=== PATIENT | male | born 1975 | race Hispanic/Latino ===

== ENCOUNTER 2021-04-06 18:56 | Emergency (ER) | payer SELFPAY ==
--- NOTE | ~2021-04-06 | XR_ITS ---
XR chest 2V DATE: 04/06/2021 19:40 INDICATION: Mid chest pain for months. Nonsmoker. TECHNIQUE: 2 views COMPARISON: None FINDINGS: Normal heart size. No hilar or mediastinal enlargement. No pulmonary infiltrate or consolidation, pleural effusion or pulmonary vascular congestion or pneumo thorax. Included skeletal structures are unremarkable. IMPRESSION: No active cardiopulmonary disease Reviewed, dictated and finalized at location A.
--- NOTE | 2021-04-06 11:09 | ECG_ITS ---
Measurements Intervals [place] Rate: 74 P: 69 MI: 138 QRS: 66 QRSD: 92 T: 40 QT: 343 QTc: 381 Interpretive Statements SINUS RHYTHM ST ELEVATION IN ANTEROLAT/INF LEADS- PROBABLY EARLY REPOLARIZATION PEAKED T WAVES- CONSIDER HYPERKALEMIA OR ISCHEMIA ABNORMAL ECG Electronically Signed On 04-11-2021 12:21:20 CDT by Matthew Hallman D.O.
[2021-04-06 19:13] VITALS: BP 135/87; PULSE 89; RESP 16; TEMP 36.8; O2SAT 99
--- NOTE | 2021-04-06 19:18 | ED.CHESTPAIN ---
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 This has occurred before when he lived in [place]. The only medication he remembers taking as well for cholesterol he denies having history of hypertension. He states that he has headache also after being outside Related Data Allergies Allergy/AdvReac Type Severity Reaction Status Date / Time No Known Allergies Allergy Verified 04/06/21 19:48 Review of Systems Review of Systems: Narrative: CONSTITUTIONAL: Denies fever, chills, sweats. EYES: Denies visual changes, redness, discharge. ENT: Denies rhinorrhea, congestion, sore throat, otalgia. CARDIOVASCULAR: Has chest pain, palpitations, edema. RESPIRATORY: Denies dyspnea, wheezing, cough GASTROINTESTINAL: Denies abdominal pain, nausea, vomiting, diarrhea. GENITOURINARY: Denies dysuria, hematuria, abnormal discharge SKIN: Denies rash or itching. NEUROLOGIC: Denies numbness, or focal weakness. Has had PSYCHIATRIC: Denies anxiety or depression. PMFSH Past Medical History Medical History High cholesterol Family History Family History Other No acute medical problems Social History Social History (Updated 04/06/21 @ 20:02 by Jaqui Sierra CNP) Smoking status: Current some day smoker Alcohol intake: current Comments At time of signature, I agree with nursing past medical, surgical, social and family history. There is no relevant family history pertinent to the presenting complaint. Exam Narrative: Exam Narrative: GENERAL: This is a well-nourished, well-developed patient, in mild distress. HEAD: normocephalic, atraumatic. EYES: Sclera clear/white. Vision is grossly intact. EARS: External ears normal, . Hearing grossly intact. NOSE: External nose normal without nasal discharge, nares without redness, no rhinorrhea. THROAT: Mucous membranes moist, NECK: Neck supple, CARDIOVASCULAR: Regular rate and rhythm without murmurs, gallops, or rubs. Nonreproducible chest wall pain RESPIRATORY: Clear to auscultation. Breath sounds equal bilaterally. No wheezes, rales, or rhonchi. GASTROINTESTINAL: Abdomen soft, non-tender, SKIN: warm, intact with no suspicious lesions or rash, good texture and turgor. NEURO: awake, alert, and oriented to person, place and time. There were no obvious focal neurologic abnormalities. Steady gait. Headache-grossly negative cranial nerves EXTREMITIES: Normal range of motion. BACK: Nontender without deformity Course Course Emergency Course: Chest x-ray negative for cardiopulmonary disease no pleural effusion are pulmonary vascular congestion EKG shows heart rate of 74, no QT prolongation, no axis deviation, sinus rhythm, mild inflected T wave, interpretation is nonspecific EKG Given ibuprofen for headache pain, pepcid for epigastric pain, started on multiple vitamin- encouraged hydration. Pt states he hydrates in sun Vital Signs Vital signs: Vital Signs Temperature 98.3 F 04/06/21 19:13 Pulse Rate 89 04/06/21 19:13 Respiratory Rate 16 04/06/21 19:13 Blood Pressure 135/87 04/06/21 19:13 Pulse Oximetry 99 04/06/21 19:13 Temperature 98.3 F 04/06/21 19:13 Pulse Rate 89 04/06/21 19:13 Respiratory Rate 16 04/06/21 19:13 Blood Pressure 135/87 04/06/21 19:13 Pulse Oximetry 99 04/06/21 19:13 MDM - Chest Pain Differential Diagnosis Differential diagnosis: Likely fracture of rib, stable angina, atypical chest pain, costochondritis, chest pain and other Critical Care Time Critical Care Time Critical Care Time: No Discharge Plan Discharge
== END 2021-04-06 20:19 | disposition home or self-care (01) ==
PROVIDERS: Emergency Provider Nurse Practitioner
DX: R10.13 Epigastric pain (principal); R51.9 Headache, unspecified; F17.200 Nicotine dependence, unspecified, uncomplicated; E78.00 Pure hypercholesterolemia, unspecified
CPT/HCPCS: 71046; 93005; 99203; G0463

== ENCOUNTER 2025-02-21 11:43 | Emergency (ER) | payer SELFPAY ==
[2025-02-21] VITALS (11 sets, daily range): BP systolic 126–133; BP diastolic 84–98; PULSE 66–76; RESP 11–26; TEMP 36.6; O2SAT 96–100
--- NOTE | ~2025-02-21 | XR_ITS ---
EXAMINATION: XR chest 2V DATE: 02/21/2025 12:08 INDICATION: Dizziness TECHNIQUE: PA and lateral views of the chest were obtained. COMPARISON: Chest radiograph dated 04/06/2021 FINDINGS: Mild opacities along the unchanged mildly elevated left hemidiaphragm. Right lung is clear. No pulmon brigido edema, pleural effusion or pneumothorax. The cardiomediastinal silhouette is normal. Mild thoraci c spondylosis. IMPRESSION: 1. Mild left basilar opacities along the chronically elevated left hemidiaphragm and favor atelectasi s over pneumonia. Reviewed, dictated and finalized at location A. IMPRESSION: 1. Mild left basilar opacities along the chronically elevated left hemidiaphrag m and favor atelectasis over pneumonia.
--- NOTE | 2025-02-21 11:58 | ECG_ITS ---
Test Date: 2025-02-21 12:30:17 Measurements Intervals [place] Rate: 74 P: 54 AL: 120 QRS: 64 QRSD: 91 T: 39 QT: 359 QTc: 400 Interpretive Statements SINUS RHYTHM EARLY REPOLARIZATION [ST ELEVATION WITH NORMALLY INFLECTED T WAVE] No previous ECG available for comparison Electronically Signed On 02-22-2025 15:58:18 CDT by Kamlesh Pozo
[2025-02-21 12:23] LABS: Basophils Percent Auto 0.9 % (0.2-1.2); Eosinophils Percent Auto 0.9 % (0-4.4); Hematocrit 44.9 % (42.0-52.0); Hemoglobin 14.1 g/dL (14.0-18.0); Immature Granulocyte Absolute 0.01 K/mm3 (0.00-0.031); Immature Granulocyte Percent A 0.2 % (0-0.5); Lymphocytes Absolute Auto 1.33 K/mm3 (0.9-3.2); Lymphocytes Percent Auto 30.3 % (18.3-44.2); Mean Corpuscular HGB Conc 31.4 g/dl (32-36); Mean Corpuscular Hemoglobin 26.6 pg (26-34); Mean Corpuscular Volume 84.6 fl (80-100); Mean Platelet Volume 11.4 fl (7.4-10.4); Monocytes Absolute Auto 0.4 K/mm3 (0.1-0.6); Monocytes Percent Auto 9.8 % (2.6-8.5); Neutrophils Absolute Auto 2.5 K/mm3 (1.3-6.7); Neutrophils Percent Auto 57.9 % (45.5-73.1); Platelet Count Result 161 k/mm3 (150-375); Red Blood Count 5.31 M/mm3 (4.6-6.20); Red Cell Distribution Width 14.7 % (11.5-14.5); White Blood Count 4.4 K/mm3 (4.5-10.0)
[2025-02-21 12:32] LABS: Alanine Aminotransferase 31 U/L (6-50); Albumin Level 4.4 g/dL (3.5-5.1); Alkaline Phosphatase 82 U/L (38-126); Anion Gap 9 mmol/L (4-12); Aspartate Amino Transferase 38 U/L (17-59); Bilirubin,Total 0.6 mg/dL (0.2-1.3); Blood Urea Nitrogen 16 mg/dL (9-20); Carbon Dioxide 26 mmol/L (22-30); Chloride 103 mmol/L (98-107); Estimated Glomerular Filt Rate > 60; Glucose 96 mg/dL (65-110); Potassium 4.1 mmol/L (3.4-5.0); Sodium 138 mmol/L (137-145)
--- NOTE | 2025-02-21 13:04 | ED_ITS ---
HPI - Dizziness General Chief Complaint: Dizziness Stated Complaint: dizziness when laying down, heaviness in head Time Seen by Provider: 02/21/25 12:47 Source: patient and family Mode of arrival: ambulatory Limitations: no limitations History of Present Illness HPI Narrative: 50 years old male does not speak Turkmen came to the ED with 1 of his family who speaks Turkmen because of intermittent dizziness and anxiety for 1 month, she believed that is getting worse. 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 Currently patient is asymptomatic. He denies any fever, chills, nausea, vomiting, chest pain, back pain or shortness of breath or headache. Patient does not smoke, or use drugs, drinks alcohol occasionally Related Data Allergies Allergy/AdvReac Type Severity Reaction Status Date / Time No Known Allergies Allergy Verified 02/21/25 11:45 Review of Systems 2 Review of Systems: All systems reviewed & are unremarkable except as noted in HPI and below PMFSH Past Medical History Medical History High cholesterol Family History Family History Other No acute medical problems Social History Social History Smoking status: Current some day smoker Alcohol intake: current Exam 2 Narrative: General appearance: Well-developed, well-nourished Skin: Normal color Head: Normocephalic, nontraumatic Eyes: Clear conjunctiva ENT: Oropharynx normal, ears normal, nose normal Neck: Supple, nontender Chest and respiratory: Airway patent, no respiratory distress, no accessory muscle use Heart: Regular rate/rhythm Abdomen: Soft, nontender, no organomegaly, quiet bowel sounds Vascular: Normal peripheral pulses, normal capillary refill. 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, no gross motor deficit Course Vital Signs Vital signs: Vital Signs Pulse Rate 69 02/21/25 12:21 Respiratory Rate 21 H 02/21/25 12:21 Pulse Oximetry 100 02/21/25 12:21 Pulse Rate 71 02/21/25 13:31 Respiratory Rate 15 02/21/25 13:31 Blood Pressure 133/84 02/21/25 13:31 Pulse Oximetry 96 02/21/25 13:31 MDM - Dizziness MDM Narrative Medical decision making narrative: Patient presents with intermittent dizziness for 1 month, Vital signs are stable Physical examination is unremarkable Differential diagnosis include anxiety like symptoms, dehydration, electrolyte imbalance Blood workup today includes CBC, CMP, troponin showed no significant abnormality Chest x-ray showed no acute abnormality Diagnosis: Dizziness, stress like symptoms-suspected The pt was discharged to home.the pt,s condition upon discharge was fair,education was provided to the pt in reference to the final impression,discharge study results,treatment,prognosis and need for follow up . Differential Diagnosis Differential diagnosis: Likely other (As above) Medical Records Attestation: I reviewed the patient's medical records. Lab Data Attestation: I reviewed the patient's lab results. 02/21/25 12:17 02/21/25 12:17 Labs: Lab Results 02/21/25 Range/Units 12:17 WBC 4.4 L (4.5-10.0) K/mm3 RBC 5.31 (4.6-6.20) M/mm3 Hgb 14.1 (14.0-18.0) g/dL Hct 44.9 (42.0-52.0) % MCV 84.6 (80-100) fl MCH 26.6 (26-34) pg MCHC 31.4 L (32-36) g/dl RDW 14.7 H (11.5-14.5) % Plt Count 161 (150-375) k/mm3 MPV 11.4 H (7.4-10.4) fl Immature Gran % (Auto) 0.2 (0-0.5) % Neut % (Auto) 57.9 (45.5-73.1) % Lymph % (Auto) 30.3 (18.3-44.2) % [place] % (Auto) 9.8 H (2.6-8.5) % Eos % (Auto) 0.9 (0-4.4) % Baso % (Auto) 0.9 (0.2-1.2) % Lymph # (Auto) 1.33 (0.9-3.2) K/mm3 [place] # (Auto) 0.4 (0.1-0.6) K/mm3 Eos # (Auto) 0.0 (0-0.3) K/mm3 Baso # (Auto) 0.0 (0.0-0.1) K/mm3 Abs Immat Gran (auto) 0.01 (0.00-0.031) K/mm3 Absolute Neuts (auto) 2.5 (1.3-6.7) K/mm3 Absolute Nucleated RBC 0.000 (0.0-0.012) K/mm3 Nucleated RBC % 0.0 (0.0-0.2) % Sodium 138 (137-145) mmol/L Potassium 4.1 (3.4-5.0) mmol/L Chloride 103 (98-107) mmol/L Carbon Dioxide 26 (22-30) mmol/L Anion Gap 9 (4-12) mmol/L BUN 16 (9-20) mg/dL Creatinine 1.00 (0.7-1.3) mg/dL Estim Creat Clear Calc Not Reportable Estimated GFR > 60 (59 - ) Glucose 96 (65-110) mg/dL Calcium 9.0 (8.4-10.2) mg/dL Total Bilirubin 0.6 (0.2-1.3) mg/dL AST 38 (17-59) U/L ALT 31 (6-50) U/L Alkaline Phosphatase 82 (38-126) U/L Total Protein 8.0 (6.3-8.2) g/dL Albumin 4.4 (3.5-5.1) g/dL Imaging Data Radiologist's impression: Impressions Chest X-Ray 02/21/25 12:12 IMPRESSION: 1. Mild left basilar opacities along the chronically elevated left hemidiaphragm and favor atelectasis over pneumonia. ECG Data EKG #1: Attestation: I personally reviewed and interpreted this ECG as follows: ECG completion date: 02/21/25 ECG completion time: 13:51 Interpretation: Normal sinus rhythm at 74 beats per minute, early repolarization, no previous EKG available for comparison Critical Care Time Critical Care Time Critical Care Time: No Discharge Plan Discharge Clinical Impression: Dizziness Patient Disposition: Home Condition: Stable Instructions: Stress (ED), Dizziness (ED) Additional Instructions: Return if symptoms are worsening , call your family physician for appointment, take Tylenol as as needed for aches and pain, continue home medications. Patient Language: Albanian Prescriptions: No Action famotidine [Pepcid] 20 mg tablet 20 mg PO BID Qty: 30 0RF ibuprofen 800 mg tablet 800 mg PO TID PRN (Reason: pain) Qty: 30 0RF Follow-up/Referrals: Ezra Henry MD [Physician] - 02/23/25 UNKNOWN,DOCTOR [Primary Care Provider] -
[2025-02-21] MEDS: LORazepam INJ (*CRX) 2 MG/ML VIAL 1 MG IV PUSH (13:17)
== END 2025-02-21 14:33 | disposition home or self-care (01) ==
PROVIDERS: Emergency Provider Emergency Medicine
DX: R42 Dizziness and giddiness (principal)
CPT/HCPCS: 36415; 71046; 80053; 85025; 93005; 96374; 99284; J2060